=== PATIENT | female | born 1955 | race Caucasian/White ===

== ENCOUNTER 2021-07-22 15:49 | Outpatient (CLI) | payer SELFPAY ==
--- NOTE | 2021-07-22 16:17 | XRAY Report ---
PROCEDURE: Chest 1 View X-Ray INDICATIONS: IMMIGRATION/POSITIVE IGRA RESULT TECHNIQUE: One view of the chest was acquired. COMPARISON: None. FINDINGS: SUPPORT DEVICES: None. LUNGS/PLEURA: No focal consolidation, pleural effusion or space-occupying pneumothorax. MEDIASTINUM: The cardiomediastinal silhouette is within normal limits. BONES/SOFT TISSUES: No acute abnormality. IMPRESSION: 1.No acute cardiopulmonary abnormality. Reviewed by: Arnaldo Adler MD on 07/22/2021 4:15 PM PDT Approved by: Arnaldo Adler MD on 07/22/2021 4:15 PM PDT Station ID: [id number]
== END 2021-07-22 15:50 | disposition home or self-care (01) ==
LOC: DI 15:49
PROVIDERS: ATTEND Family Medicine
DX: R79.89 Other specified abnormal findings of blood chemistry (principal)